=== PATIENT | female | born 1965 | race Caucasian/White ===

== ENCOUNTER 2018-10-08 17:57 | Inpatient (IN) | payer OTHER ==
[~2018-10-08] VITALS: Ht 162.6 cm; Wt 120.0 kg
[~2018-10-08 17:57] MED LIST: Bactrim 400-801 EACH PO; MUPI2TC TOP; NAPR220 PO; Omeprazole20 M1
[2018-10-08 19:12] LABS: BASOPHILS ABSOLUTE AUTO 0.05 K/mm3 (0.00-0.23); BASOPHILS PERCENT AUTO 1 % (0-2); EOSINOPHILS ABSOLUTE AUTO 0.17 K/mm3 (0.00-0.68); EOSINOPHILS PERCENT AUTO 2 % (0-6); Hematocrit 41.8 % (33.0-51.0); Hemoglobin 12.6 g/dL (11.5-16.0); IMMATURE GRAN ABSOLUTE AUTO 0.04 K/mm3 (0.00-0.10); IMMATURE GRAN PERCENT AUTO 0 % (0-1); LYMPHOCYTES ABSOLUTE AUTO 2.72 K/mm3 (0.84-5.20); LYMPHOCYTES PERCENT AUTO 29 % (21-46); MONOCYTES ABSOLUTE AUTO 0.65 K/mm3 (0.16-1.47); MONOCYTES PERCENT AUTO 7 % (4-13); Mean Corpuscular HGB 25.4 pg (26.0-34.0); Mean Corpuscular HGB Conc 30.1 g/dL (31.5-36.5); Mean Corpuscular Volume 84 fL (80-100); Mean Platelet Volume 10.4 fL (9.1-12.4); NEUTROPHILS ABSOLUTE AUTO 5.65 K/mm3 (1.96-9.15); NEUTROPHILS PERCENT AUTO 61 % (41-73); Platelet Count 311 K/mm3 (150-400); RDW Coefficient Variation 14.7 % (11.7-14.2); RDW Standard Deviation 45.1 fL (35.1-46.3); Red Blood Cell Count 4.96 M/mm3 (3.80-5.20); White Blood Cell Count 9.28 K/mm3 (4.00-11.30)
[2018-10-08 19:24] LABS: International Normalized Ratio 1.11; Prothrombin Time Results 11.4 Sec (9.7-11.5)
[2018-10-08] MEDS ORDERED: IBUP800 PO (19:27)
[2018-10-08 19:32] LABS: Alanine Aminotransfer (ALT/SGP 25 U/L (12-78); Albumin, Blood 3.4 g/dL (3.4-5.0); Albumin/Globulin Ratio 0.9 (0.8-1.8); Alk Phos 106 U/L (50-136); Anion Gap 8 mmol/L (6-16); Aspartate Aminotrans (AST/SGOT 17 U/L (12-37); Bilirubin, Total 0.4 mg/dL (0.1-1.0); Blood Urea Nitrogen 14 mg/dL (8-24); Bun/Creatinine Ratio 20.1 (12.0-20.0); CO2, Blood 23 mmol/L (21-32); Calcium, Blood 8.7 mg/dL (8.5-10.1); Chloride, Blood 106 mmol/L (98-108); Globulin, Blood 3.9 g/dL (2.2-4.0); Glomerular Filtration Rate >60 (60-); Glucose, Blood 119 mg/dL (70-99); Magnesium, Blood 2.1 mg/dL (1.6-2.4); Potassium, Blood 3.8 mmol/L (3.5-5.5); Sodium, Blood 137 mmol/L (136-145); Total Protein, Blood 7.3 g/dL (6.4-8.2); Troponin I 0.029 ng/mL (0.000-0.040)
[2018-10-08] MEDS ORDERED: ASPI81CH PO (20:32)
[2018-10-08 20:54] LABS: Free Thyroxine 1.24 ng/dL (0.70-1.60)
[2018-10-08 20:56] LABS: Thyroid Stimulating Hormone 1.4 uIU/mL (0.360-4.800)
[2018-10-08] MEDS ORDERED: Micro-K10 MEQ (21:12)
[2018-10-08] MEDS ORDERED: GLUC500 PO (21:13)
[2018-10-08] MEDS ORDERED: Vitamin A10000 UNIT (21:14)
[2018-10-09 03:08] LABS: Hematocrit 40.5 % (33.0-51.0); Hemoglobin 12.2 g/dL (11.5-16.0); Mean Corpuscular HGB 25.3 pg (26.0-34.0); Mean Corpuscular HGB Conc 30.1 g/dL (31.5-36.5); Mean Corpuscular Volume 84 fL (80-100); Mean Platelet Volume 10.1 fL (9.1-12.4); Platelet Count 284 K/mm3 (150-400); RDW Coefficient Variation 14.6 % (11.7-14.2); RDW Standard Deviation 44.8 fL (35.1-46.3); Red Blood Cell Count 4.82 M/mm3 (3.80-5.20); White Blood Cell Count 9.24 K/mm3 (4.00-11.30)
[2018-10-09 03:27] LABS: Alanine Aminotransfer (ALT/SGP 24 U/L (12-78); Albumin, Blood 3.3 g/dL (3.4-5.0); Albumin/Globulin Ratio 0.8 (0.8-1.8); Alk Phos 100 U/L (50-136); Anion Gap 8 mmol/L (6-16); Aspartate Aminotrans (AST/SGOT 18 U/L (12-37); Bilirubin, Total 0.5 mg/dL (0.1-1.0); Blood Urea Nitrogen 16 mg/dL (8-24); Bun/Creatinine Ratio 25.6 (12.0-20.0); CO2, Blood 26 mmol/L (21-32); Calcium, Blood 8.7 mg/dL (8.5-10.1); Chloride, Blood 108 mmol/L (98-108); Creatinine, Blood 0.63 mg/dL (0.40-1.00); Globulin, Blood 3.9 g/dL (2.2-4.0); Glomerular Filtration Rate >60 (60-); Glucose, Blood 117 mg/dL (70-99); Sodium, Blood 142 mmol/L (136-145); Total Protein, Blood 7.2 g/dL (6.4-8.2)
--- NOTE | 2018-10-09 05:55 | NUR ---
SHIFT SUMMARY PATIENT ALERT AND ORIENTED X 3 THROUGHOUT SHIFT. SHE HAS HAD NO INSTANCES OF CHEST PAIN SINCE ARRIVAL. SHE DID HAVE SOME CONTINUING AFLUTTER AND CARDIZEM IS RUNNING. PT DID NOT SLEEP WELL T/O SHIFT. BUT DID REST INTERMITTENTLY. PT DENIED ANY UNMET NEEDS, REMAINED INDPENDENT IN THE ROOM AND WAS STEADY AND STABLE ON HER FEET. PT HAD A 3.2 SECOND PAUSE AT ONE POINT DURING THE NIGHT, BUT DID NOT HAVE ANY SYMPTOMS RELATED TO THIS. PT VITALS REMAINED STABLE AND HER RATE HAS DECREASED FROM 160'S IN ER TO 90'S IN PCU. SHE HAS HER BED IN THE LOWEST POSITIN, CALL LIGHT IN REACH AND BED ALARM IS NOT ACTIVE DUE TO HER INDPENDENCE. PT USED CALL LIGHT APPROPRIATELY AND WAS ABLE TO EFFECTIVELY MAKE NEEDS KNOWN. PT WILL CONTINUE TO BE MONITORED UNTIL HANDOFF TO DAYSHIFT RN.
[2018-10-09 06:47] LABS: Source, Urine Clean Catch
[2018-10-09 06:59] LABS: Bilirubin, Urine Neg (Neg); Blood, Urine Neg (Neg); Glucose Qualitative, Urine Neg (Neg); Ketones, Urine Neg (Neg); Leukocyte Esterase, Urine Neg (Neg); Nitrite, Urine Neg (Neg); Protein, Urine Neg (Neg); Urobilinogen, Urine NORM (Normal)
[2018-10-09 07:18] LABS: Appearance, Urine Clear (Clear); Color, Urine Yellow (P-Yellow)
--- NOTE | 2018-10-09 11:22 | NUR ---
AM NOTE. ASSUMED CARE OF PT APROX 0700. PT IS A&Ox3 PLEASENT AND COOPERATIVE [facility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
[2018-10-09 11:43] LABS: Troponin I 0.023 ng/mL (0.000-0.040)
--- NOTE | 2018-10-09 17:31 | NUR ---
PT GAVE PERMISSION FOR STUDENT TO PROVIDE CARE. KIRK
--- NOTE | 2018-10-09 19:36 | NUR ---
SHIFT SUMMARY. PT'S O2 NEEDS INCREASED FROM PRN TO CONTINUOUS AT 2 L NC. PT WAS ENCOURAGED TO USE O2 WHEN WALKING TO THE BATHROOM TO HELP PREVENT THE PT FROM BECOMING SO SOB WITH THIS ACTIVITY. PT WAS AGREEABLE. PT DENIES CHEST PAIN/PRESSURE, N/V AND IS SOB WITH ACTIVITY. SURGICAL PROVIDER CAME AND SAW THE PT IN THE ROOM TO TALK ABOUT THE ABD ULTRA SOUND RESULTS (SEE SURGICAL PROVIDER'S NOTE.) THIS RN PROVIDED EDUCATION AND THERAPUTIC COMMUNICATION TO THE PT AND THE PT'S S.O. ABOUT THE PT'S CURRENT MEDICAL STATUS AND MEDICATIONS. CALL LIGHT IN REACH, BED IS LOCKED AND LOW, WILL CONTINUE TO MONITOR UNTIL REPORT IS GIVEN TO ONCOMING RN.
--- NOTE | 2018-10-10 03:12 | NUR ---
PATIENT UPDATE PATIENT HAS BEEN SLEEPING SOUNDLY THIS SHIFT. SHE HAS BEEN HAVING APNEIC EVENTS THAT ARE OBSERVED TO CORRESPOND WITH CARDIAC PAUSES RANGING FROM 5-7.5 SECONDS. PT HAS HAD 5 PAUSES AT THIS TIME. PT DOCTOR WAS CONTACTED AND ORDER FOR CPAP AND CONTINUOUS BIOX WAS ORDERED. RESPIRATORY THERAPY WAS CONTACTED AND CPAP HAS BEEN APPLIED. PT IS OBSERVED TO BE LETHARGIC, FALLING ASLEEP DURING CONVERSATIONS. SHE WAKES EASILY, BUT DOES NOT STAY AWAKE. PT IS NOT RECEIVING ANY NARCOTIC PAIN/ANXIETY. PT DID GET 6 MG MELATONIN AND 400 MG IBUPROFEN AT 2159. PT WILL CONTINUE TO BE MONITORED. SHE IS TOLERATING HER CPAP AT THIS TIME.
[2018-10-10 04:35] LABS: Anion Gap 9 mmol/L (6-16); Blood Urea Nitrogen 17 mg/dL (8-24); Bun/Creatinine Ratio 30.1 (12.0-20.0); CO2, Blood 26 mmol/L (21-32); Calcium, Blood 8.7 mg/dL (8.5-10.1); Chloride, Blood 105 mmol/L (98-108); Creatinine, Blood 0.56 mg/dL (0.40-1.00); Glomerular Filtration Rate >60 (60-); Glucose, Blood 122 mg/dL (70-99); Potassium, Blood 3.6 mmol/L (3.5-5.5); Sodium, Blood 140 mmol/L (136-145)
--- NOTE | 2018-10-10 05:42 | NUR ---
SHIFT SUMMARY PT ALERT AND ORIENTED X 3 THROUGHOUT SHIFT. SHE SLEPT VERY HEAVILY DURING THE NIGHT. PT HAD SOME ISSUES RELATED TO CARDIAC AND BREATHING ISSUES T/O THE SHIFT (SEE PREVIOUS NOTE) BUT REMAINED ASYMPTOMATIC WITH THE EXCEPTION OF SOB WITH AMBULATION. PT DID TOLERATE THE CPAP THAT RESPIRATORY SET UP AND SHE DID NOT HAVE ANY REPEAT PAUSES. HER BLOOD PRESSURE CAME DOWN AFTER CPAP ADMINISTRATION. PT WAS INDEPENDENT IN THE ROOM AND WAS ABLE TO MAKE HER NEEDS KNOWN. SHE USED HER CALL LIGHT APPROPRIATELY AND IT WAS LEFT WITHIN EASY REACH. PT HAD HER BED IN THE LOWEST POSITION AND 2X SIDE RAILS IN PLACE. SHE WAS OBSERVED TO BE SLEEPY DURING PERIODS OF WAKING, BUT WAS ABLE TO COMMUNICATE WITH STAFF DURING THESE PERIODS. SHE DENIED ANY UNMET NEEDS AND WILL CONTINUE TO BE MONITORED UNTIL HANDOFF TO DAYSHIFT RN.
--- NOTE | 2018-10-10 14:44 | NUR ---
PT EXPRESSED CONCERNS OF STATUS OF HER JOB AND POSSIBLE INABILITY TO RETURN TO WORK IN TIME. PT REQUEST TO SPEAK TO A [employer] ENG[employer] TO POSSIBLY DISCUSS DISABILITY PROCESS AND IF SHE QUALIFIES FOR THIS. SOCIAL SERVICE CONSULT PLACED.
--- NOTE | 2018-10-10 17:10 | NUR ---
SHIFT SUMMARY PT PLEASANT, COOPERATIVE, AND USES CALL LIGHT APPROPRIATELY. PT REMAINED A&OX4. VITAL SIGNS STABLE. OXYGEN SATS IN 90'S ON ROOM AIR. ASSESSMENT FINDINGS REMAIN UNCHANGED. HEART RHTYTHM REMAINS IN A. FLUTTER. ALTHOUGH THIS MORNING APPROX 1057. PT HAD A 5.2 SECOND PAUSE PMD NOTIFIED OF THIS. PT ABLE TO AMBULATE AROUND UNIT AND DOWN TO CAFETERIA AND TOELRATED WELL. PT CONTINUE TO AMBULATE TO BATHROOM NEEDED AND TOLERATES WELL. FAMILY AND FRIENDS BEDSIDE INTERMITTENTLY TODAY. PT CURRENTLY UP IN CHAIR. CALL LIGHT IN REACH AND PT DENIES ANY NEEDS AT THIS TIME. WILL CONTINUE TO MONITOR UNTIL HANDOFF TO NIGHTSHIFT RN.
--- NOTE | 2018-10-10 22:26 | NUR ---
BLOOD PRESSURES: NURSE PRACTITIONER LINDA NOTIFIED OF PATIENT'S BLOOD PRESSURE TREND AND THAT THE DYSTOLIC HAS BEEN IN THE LOW 100'S. LAST BLOOD PRESSURE 152/112. NO NEW ORDERS GIVEN AT THIS TIME.
--- NOTE | 2018-10-11 01:38 | NUR ---
UPDATE: DR STAPLETON UPDATED ON PATIENT HEART RATE AND HOW IT CONTINUES TO GO BETWEEN LOW 100'S TO THE 140'S. DR STAPLETON ALSO UPDATED ON ELEVATED BLOOD PRESSURE. NEW ORDERS GIVEN (SEE EMAR).
[2018-10-11 05:19] LABS: Anion Gap 8 mmol/L (6-16); Blood Urea Nitrogen 21 mg/dL (8-24); Bun/Creatinine Ratio 33.4 (12.0-20.0); CO2, Blood 26 mmol/L (21-32); Calcium, Blood 8.8 mg/dL (8.5-10.1); Chloride, Blood 104 mmol/L (98-108); Creatinine, Blood 0.63 mg/dL (0.40-1.00); Glomerular Filtration Rate >60 (60-); Glucose, Blood 103 mg/dL (70-99); Potassium, Blood 3.7 mmol/L (3.5-5.5); Sodium, Blood 138 mmol/L (136-145)
--- NOTE | 2018-10-11 06:39 | NUR ---
UPDATE: VERIFIED WITH DR STAPLETON THAT THE ORDER FOR 100 MG METOPROLOL SUCCINATE BID WAS CORRECT. DR STAPLETON STATED THAT IT WAS.
--- NOTE | 2018-10-11 08:03 | NUR ---
SHIFT SUMMARY PATIENT PLEASENT AND COOPERATIVE THROUGHOUT THE NIGHT. PATIENT APPEARED TO SLEEP WELL THROUGHOUT THE NIGHT. PATIENT USED HER CPAP ON AND OFF BUT IT WAS DIFFICULT TO ENCOURAGE PATIENT TO WEAR IT ALL NIGHT. PATIENT REFUSED THE CPAP SEVERAL TIMES LAST NIGHT EVEN AFTER EDUCATION ON IMPORTANCE OF CPAP USE PROVIDED. PATIENT MEDICATED FOR PAIN PER EMAR. CARDIZEM GTT STARTED FOR HEART RATE IN THE 130'S-150'S AND 0900 TOPROL XL GIVEN EARLY PER DR STAPLETON'S ORDERS. REPORT GIVEN TO ONCOMING RN.
--- NOTE | 2018-10-11 13:01 | NUR ---
LATE ENTRY APPROX. 1010 CARDIZEM DRIP WAS TURNED OFF. WILL CONTINUE TO MONITOR
--- NOTE | 2018-10-11 18:38 | NUR ---
SHIFT SUMMARY PT PLEASANT, COOPERATIVE, AND USES CALL LIGHT APPROPRIATELY. HEART RHYTHM RANGING FROM SINUS RUDY TO SINUS RHTYHM SINCE APPROX 1020, EVEN WITH ACTIVITY. CARDIZEM DRIP WAS TURNED OFF AT 1010. VITAL SIGNS REMAIN STABLE AND ALL OTHER ASSESSMENT FINDINGS REMAIN UNCHANGED. PT ABLE TO AMBULATE TO BATHROOM NEEDED AND ABLE TO AMBULATE AROUND UNIT AND TOELRATED WELL. PT HAD FAMILY AND FRIENDS INTERMITTENTLY AT BEDSIDE TODAY. PT CURRENTLY IN BED, BED IN LOW POSITION, CALL LIGHT IN REACH AND PT DENIES ANY NEEDS AT THIS TIME. WILL CONTINUE TO MONIOTR UNTIL HANDOFF TO NIGHTSHIFT RN.
--- NOTE | 2018-10-11 20:05 | NUR ---
PM NOTE. ASSUMED CARE OF PT APROX 1900. PT IS A&Ox4, PLEASENT AND COOPERATIVE WITH CARE. PT HOWEVER HAS BEEN REFUSING TO USE THE CPAP DUIRNG SLEEP THIS SHIFT, PT WAS EDUCATED THROUGHLY ABOUT RISKS OF NOT USING THE CPAP, PT VERBALIZED HER UNDERSTANDING. TELE INTACT, NSR IN THE 60'S PER WEED CONTROLLER, BP 151/92, TRACE EDEMA TO THE PT'S BLE, THIS IS IMPROVED FROM 4+ PITTING ON ADMIT. L/S COARSE T/O BUT NO WHEEZES HEARD, PT IS >90% ON RA. BT PRESENT AND HYPERACTIVE ABD IS SOFT AND NONTENDER TO PALP. CALL LIGHT IN REACH, BED IS LOCKED AND LOW, WILL CONTINUE TO MONITOR.
--- NOTE | 2018-10-12 05:20 | NUR ---
GULSHAN SUMMARY. PT HAS HAD 3 APROX 3 SECOND PAUSES THIS SHIFT, PT HAS BEEN IN SR/SB WITH RATES LOW THE 30'S. PT HAS WORN HER CPAP OFF AND ON THIS SHIFT WITH THE PAUSES OCCURING WITH AND WITHOUT HER BEING ON THE CPAP. PT IS SLEEPING DURING THESE PAUSES AND IT IS UNKNOWN IF SHE IS SYMPTOMATIC, WHEN PT IS WOKE UP AFTER A PAUSE PT DENIES ANY CHEST PAIN/PRESSURE, LIGHTHEADED/DIZZINESS OR SOB. CALL LIGHT IN REACH, BED IS LOCKED AND LOW, WILL CONTINUE TO MONITOR UNTIL REPORT IS GIVEN TO ONCOMING RN.
--- NOTE | 2018-10-12 08:09 | NUR ---
PCU DAYSHIFT ASSUMED CARE OF PT APPROX. 0700. PT A&OX4. ASSESSMENT COMPLETED. VITAL SIGNS STABLE. HEART RHYTHM SINUS BRADYCARDIA AT THIS TIME. PT CURRENLTY RESTING IN BED WITH CPAP IN PLACE. OXYGEN SATS IN 90'S. BED IN LOW POSITION, CALL LIGHT IN REACH AND PT DENIES ANY NEEDS AT THIS TIME.
[2018-10-12] MEDS ORDERED: Tylenol325 MG PO (14:29)
[2018-10-12] MEDS ORDERED: METO50ER PO (14:31)
[2018-10-12] MEDS ORDERED: Pedi-Dri 100,0060 GM (14:33)
[2018-10-12] MEDS ORDERED: PRED20 PO (14:35)
[2018-10-12] MEDS ORDERED: WARF7.5 PO (14:38)
--- NOTE | 2018-10-12 17:02 | NUR ---
DISCHARGE DISCHARGE ORDERS RECIEVED. COLLABORATED WITH CARE MANAGEMENT RN TO ENSURE DISCHARGE PLAN COMPLETED. DISCHARGE PROCESS COMPLETED. MEDICATIONS CALLED TO PHARMACY. REVIEWED DISCHARGE INFORMATION WITH PT AND SIGNIFICANT OTHER. QUESTIONS ANSWERED. PROVIDED PRINTED OUT INFORMATION ON NEW MEDICATION, COUMADIN. IV REMOVED AND PT AMBULATED TO AUTOMOBILE. NO S/SX OF ACUTE DISTRESS UPON DEPARTURE.
== END 2018-10-12 16:49 | disposition home or self-care (01) | DRG 291 ==
LOC: ER 17:57 → PCU 20:19
PROVIDERS: Emergency Medicine; Hospitalist; Internal Medicine; ADMIT Internal Medicine
DX: I11.0 Hypertensive heart disease with heart failure (principal); I50.31 Acute diastolic (congestive) heart failure; Z68.41 Body mass index [BMI] 40.0-44.9, adult; I48.91 Unspecified atrial fibrillation; G47.33 Obstructive sleep apnea (adult) (pediatric); E66.01 Morbid (severe) obesity due to excess calories; K21.9 Gastro-esophageal reflux disease without esophagitis; F17.210 Nicotine dependence, cigarettes, uncomplicated; Z79.82 Long term (current) use of aspirin; Z91.14 Patient's other noncompliance with medication regimen
CPT/HCPCS: 36415; 71045; 76705; 80048; 80053; 81003; 82550; 83735; 83880; 84439; 84443; 84484; 85025; 85027; 85610; 85730; 93005; 93010; 93306; 94640; 94660; 94760; 94762; 96365; 99285-25; J1940

== ENCOUNTER 2020-01-03 20:16 | Emergency (ER) | payer SELFPAY, OTHER ==
[~2020-01-03] VITALS: Ht 162.6 cm; Wt 131.5 kg
[~2020-01-03 20:16] MED LIST changes: +ASPI81CH PO; +GLUC500 PO; +IBUP800 PO; +METO50ER PO; +Micro-K10 MEQ; +PRED20 PO; +Pedi-Dri 100,0060 GM; +Tylenol325 MG PO; +Vitamin A10000 UNIT; +WARF7.5 PO
[2020-01-03 21:09] LABS: BASOPHILS ABSOLUTE AUTO 0.05 K/mm3 (0.00-0.23); BASOPHILS PERCENT AUTO 0 % (0-2); EOSINOPHILS ABSOLUTE AUTO 0.17 K/mm3 (0.00-0.68); EOSINOPHILS PERCENT AUTO 2 % (0-6); Hematocrit 42.7 % (33.0-51.0); Hemoglobin 13.4 g/dL (11.5-16.0); IMMATURE GRAN ABSOLUTE AUTO 0.03 K/mm3 (0.00-0.10); IMMATURE GRAN PERCENT AUTO 0 % (0-1); LYMPHOCYTES ABSOLUTE AUTO 2.92 K/mm3 (0.84-5.20); LYMPHOCYTES PERCENT AUTO 26 % (21-46); MONOCYTES ABSOLUTE AUTO 0.68 K/mm3 (0.16-1.47); MONOCYTES PERCENT AUTO 6 % (4-13); Mean Corpuscular HGB 26.5 pg (26.0-34.0); Mean Corpuscular HGB Conc 31.4 g/dL (31.5-36.5); Mean Corpuscular Volume 84 fL (80-100); Mean Platelet Volume 10.3 fL (9.1-12.4); NEUTROPHILS ABSOLUTE AUTO 7.48 K/mm3 (1.96-9.15); NEUTROPHILS PERCENT AUTO 66 % (41-73); Platelet Count 279 K/mm3 (150-400); RDW Coefficient Variation 15.1 % (11.7-14.2); RDW Standard Deviation 46.9 fL (35.1-46.3); Red Blood Cell Count 5.06 M/mm3 (3.80-5.20); White Blood Cell Count 11.33 K/mm3 (4.00-11.30)
== END 2020-01-03 21:58 | disposition home or self-care (01) ==
LOC: ER 20:16
PROVIDERS: Nurse Practitioner
DX: I11.0 Hypertensive heart disease with heart failure (principal); I50.9 Heart failure, unspecified; I48.91 Unspecified atrial fibrillation; F17.210 Nicotine dependence, cigarettes, uncomplicated; Z79.899 Other long term (current) drug therapy; Z79.82 Long term (current) use of aspirin; Z79.01 Long term (current) use of anticoagulants; Z79.52 Long term (current) use of systemic steroids
CPT/HCPCS: 36415; 71046; 84484; 85025; 93005; 93010; 99284-25

== ENCOUNTER → 2020-01-17 | Outpatient (CLI) | payer OTHER | LOC: LAB SHORT 08:39 → PLD 08:39 | DX: Z32.02 Encounter for pregnancy test, result negative (principal); N93.8 Other specified abnormal uterine and vaginal bleeding | CPT/HCPCS: 88305 ==

== ENCOUNTER 2020-08-22 10:56 | Day surgery (SDC) | payer OTHER ==
[~2020-08-22] VITALS: Ht 162.6 cm; Wt 123.6 kg
[~2020-08-22 10:56] MED LIST changes: +ALBU90OI INH; +ALDACTONE100 MG PO; +ATOR20 PO; +BUPR150ER PO; +Metoprolol Succ25 MG PO; +OMEP20ER PO; +TORSE20 PO; +VITAMIN A PO; +Vitamin B-121000 MCG PO; +WARF4 PO
--- NOTE | 2020-08-22 11:14 | NUR ---
08/22/20 1114 Lorelei Su CALL LIGHT WITHIN REACH
== END 2020-08-22 12:41 | disposition home or self-care (01) ==
LOC: ORSCSDS 10:56
PROVIDERS: Internal Medicine Gastroenterology
PROC: 0DBN8ZX Excision of Sigmoid Colon, Via Natural or Artificial Opening Endoscopic, Diagnostic (ICD-10-PCS; principal; 2020-08-22 12:15)
PROC: 0DBL8ZX Excision of Transverse Colon, Via Natural or Artificial Opening Endoscopic, Diagnostic (ICD-10-PCS; principal; 2020-08-22 12:15)
DX: R10.11 Right upper quadrant pain (principal); K63.5 Polyp of colon; K57.30 Diverticulosis of large intestine without perforation or abscess without bleeding; I48.0 Paroxysmal atrial fibrillation; I10 Essential (primary) hypertension; I50.9 Heart failure, unspecified; E66.01 Morbid (severe) obesity due to excess calories; Z68.42 Body mass index [BMI] 45.0-49.9, adult; G47.33 Obstructive sleep apnea (adult) (pediatric); J44.9 Chronic obstructive pulmonary disease, unspecified; E78.00 Pure hypercholesterolemia, unspecified; Z79.899 Other long term (current) drug therapy; F17.210 Nicotine dependence, cigarettes, uncomplicated
CPT/HCPCS: 88305; J2250; J2405; J2704; J7120

== ENCOUNTER 2020-11-21 12:02 | Day surgery (SDC) | payer OTHER ==
[~2020-11-21] VITALS: Ht 162.6 cm; Wt 122.3 kg
== END 2020-11-21 13:59 | disposition home or self-care (01) ==
LOC: ORSCSDS 12:02
PROVIDERS: Internal Medicine Gastroenterology
PROC: 0DB98ZX Excision of Duodenum, Via Natural or Artificial Opening Endoscopic, Diagnostic (ICD-10-PCS; principal; 2020-11-21 13:30)
PROC: 0DB58ZX Excision of Esophagus, Via Natural or Artificial Opening Endoscopic, Diagnostic (ICD-10-PCS; principal; 2020-11-21 13:30)
PROC: 0DB68ZX Excision of Stomach, Via Natural or Artificial Opening Endoscopic, Diagnostic (ICD-10-PCS; principal; 2020-11-21 13:30)
PROC: 0DBA8ZX Excision of Jejunum, Via Natural or Artificial Opening Endoscopic, Diagnostic (ICD-10-PCS; principal; 2020-11-21 13:30)
DX: R93.3 Abnormal findings on diagnostic imaging of other parts of digestive tract (principal); R10.11 Right upper quadrant pain; K21.9 Gastro-esophageal reflux disease without esophagitis; I48.91 Unspecified atrial fibrillation; I10 Essential (primary) hypertension; I48.0 Paroxysmal atrial fibrillation; G47.33 Obstructive sleep apnea (adult) (pediatric); J44.9 Chronic obstructive pulmonary disease, unspecified; E66.01 Morbid (severe) obesity due to excess calories; F17.210 Nicotine dependence, cigarettes, uncomplicated; Z68.42 Body mass index [BMI] 45.0-49.9, adult; Z79.01 Long term (current) use of anticoagulants; Z79.899 Other long term (current) drug therapy
CPT/HCPCS: 88305; 88342; J2704; J7120

== ENCOUNTER → 2021-06-16 | Outpatient (CLI) | payer MEDICARE, OTHER | END | disposition home or self-care (01) | LOC: LAB SHORT 10:53 → LAB 10:53 | DX: D22.4 Melanocytic nevi of scalp and neck (principal) | CPT/HCPCS: 88305 ==

== ENCOUNTER 2022-10-14 05:40 | Day surgery (SDC) | payer OTHER ==
[2022-10-14] MEDS ORDERED: XARELTO20 MG PO (06:21)
[2022-10-14] MEDS ORDERED: MERIBIN5 MG PO (06:22)
--- NOTE | 2022-10-14 07:30 | NUR ---
PT WAS CARDIOVERTED X3 /C 200J. AFIB 76 BPM POST CARDIOVERSION. PT AWAKE AND VERBALIZING WELL.
--- NOTE | 2022-10-14 07:32 | NUR ---
PT VERBALIZED UNDERSTANDING OF WRITTEN AND VERBAL D/C INST. IV REMOVED. PT TAKEN OUT OF THE HRT CENTER VIA W/C.
== END 2022-10-14 23:01 | disposition home or self-care (01) ==
LOC: MHTC 05:40
DX: I48.11 Longstanding persistent atrial fibrillation (principal); E66.01 Morbid (severe) obesity due to excess calories; I10 Essential (primary) hypertension; G47.33 Obstructive sleep apnea (adult) (pediatric); Z68.43 Body mass index [BMI] 50.0-59.9, adult; Z99.89 Dependence on other enabling machines and devices; Z79.899 Other long term (current) drug therapy; Z91.048 Other nonmedicinal substance allergy status
CPT/HCPCS: 92960; J7030

== ENCOUNTER 2024-09-11 14:07 | Emergency (ER) | payer OTHER ==
[~2024-09-11] VITALS: Ht 162.6 cm; Wt 136.1 kg
[~2024-09-11 14:07] MED LIST changes: +MERIBIN5 MG PO; +XARELTO20 MG PO
[2024-09-11 14:14] VITALS: BP 128/89
[2024-09-11] MEDS ORDERED: CODEINE-GUAIFE120 M1 PO (15:14)
== END 2024-09-11 15:16 | disposition home or self-care (01) ==
LOC: ER 14:07
DX: J10.1 Influenza due to other identified influenza virus with other respiratory manifestations (principal); I48.91 Unspecified atrial fibrillation; I11.0 Hypertensive heart disease with heart failure; I50.9 Heart failure, unspecified; F17.210 Nicotine dependence, cigarettes, uncomplicated; Z79.01 Long term (current) use of anticoagulants; Z79.899 Other long term (current) drug therapy; Z59.89 Other problems related to housing and economic circumstances
CPT/HCPCS: 71046; 87081; 87430; 99283-25